=== PATIENT | female | born 1940 | race Caucasian/White ===

== ENCOUNTER → 2016-12-17 | Outpatient (CLI) | payer MEDICARE, BC ==
--- NOTE | 2016-12-24 15:10 | KCIC ---
DATE: 12/17/2016. EXAM: MAMMO [facility] SCREENING BILATERAL. HISTORY: Routine mammographic screening. COMPARISON: 08/15/2012. This study was interpreted with the benefit of Computerized Aided Detection (CAD). FINDINGS: The breast parenchyma shows scattered fibroglandular densities. Breast parenchyma level B.. A density laterally on the left CC view corresponds with small nodules superiorly and inferiorly on the left MLO view, best seen tomographic. These are better seen in the setting of decreasing parenchymal density since the prior study. On the right, small nodules laterally have stable correlates previously and are likely benign. BI-RADS CATEGORY: 0 INCOMPLETE: NEEDS ADDITIONAL IMAGING EVALUATION AND/OR PRIOR MAMMOGRAMS FOR COMPARISON.. RECOMMENDED FOLLOW-UP: ADD ADDITIONAL IMAGING. Spot compression imaging of small nodule superiorly and inferiorly and laterally on the left with sonography if necessary. See annotations. PQRS compliance statement: Patient information was entered into a reminder system with a target due date (now) for the next mammogram. Mammography is a sensitive method for finding small breast cancers, but it does not detect them all and is not a substitute for careful clinical examination. A negative mammogram does not negate a clinically suspicious finding and should not result in delay in biopsying a clinically suspicious abnormality. "Our facility is accredited by the [employer] Mammography [employer]."
== END | disposition home or self-care (01) ==
LOC: KCIC MAMMO 12:26
PROVIDERS: ATTEND Family Medicine
DX: Z12.31 Encounter for screening mammogram for malignant neoplasm of breast (principal)
CPT/HCPCS: 77063; G0202; 77067

== ENCOUNTER → 2017-01-21 | Outpatient (CLI) | payer MEDICARE, BC ==
--- NOTE | 2017-01-21 09:38 | KCIC ---
DATE: 01/21/2017 EXAM: DIGITAL DIAGNOSTIC LT HISTORY: Left breast nodules COMPARISON: 12/17/2016 This study was interpreted with the benefit of Computerized Aided Detection (CAD). FINDINGS: Breast Density: SCATTERED The breast parenchyma shows scattered fibroglandular densities. Breast parenchyma level B. Spot compression views of the left breast in MLO view demonstrate no definite evidence of mass or lesion. The previously visualized asymmetry appears to spread out on spot compression views. IMPRESSION: Probably benign findings. Recommend left breast mammogram in 6 months. BI-RADS CATEGORY: 3 PROBABLE BENIGN-SHORT TERM F/U RECOMMENDED FOLLOW-UP: 6M 6 MONTH FOLLOW-UP PQRS compliance statement: Patient information was entered into a reminder system with a target due date 07/22/2017 for the next mammogram. Mammography is a sensitive method for finding small breast cancers, but it does not detect them all and is not a substitute for careful clinical examination. A negative mammogram does not negate a clinically suspicious finding and should not result in delay in biopsying a clinically suspicious abnormality. "Our facility is accredited by the [employer] Mammography [employer]."
== END | disposition home or self-care (01) ==
LOC: KCIC MAMMO 08:39
PROVIDERS: ATTEND Family Medicine
DX: N63.10 Unspecified lump in the right breast, unspecified quadrant (principal)
CPT/HCPCS: G0206; 77065

== ENCOUNTER → 2017-05-24 | Outpatient (CLI) | payer OTHER | END | disposition home or self-care (01) | LOC: KCIC DEXA 11:22 | DX: Z13.820 Encounter for screening for osteoporosis (principal); M81.0 Age-related osteoporosis without current pathological fracture; M85.88 Other specified disorders of bone density and structure, other site; E05.90 Thyrotoxicosis, unspecified without thyrotoxic crisis or storm; Z78.0 Asymptomatic menopausal state | CPT/HCPCS: 77080 ==

== ENCOUNTER → 2017-08-05 | Outpatient (CLI) | payer MEDICARE | END | disposition home or self-care (01) | LOC: KCIC MAMMO 10:18 | DX: R92.8 Other abnormal and inconclusive findings on diagnostic imaging of breast (principal) | CPT/HCPCS: 77065; G0279 ==

== ENCOUNTER → 2019-05-17 | Outpatient (CLI) | payer MEDICARE ==
[2017-06-19 15:00] VITALS: BP 145/66
[~2019-05-17] MED LIST: ASPI325T8 PO; GABA300C18 PO; HYDR-2765 PO; LEVO100T PO
--- NOTE | 2019-05-17 10:48 | KCIC ---
Bilateral diagnostic digital mammograms with 3-D tomosynthesis: Reason for examination: Bilateral breast pain laterally. Comparison is made to previous studies dated back to 08/15/2012. Bilateral mammograms in CC and oblique projections were obtained with 2-D imaging and 3-D tomosynthesis imaging on a Siemens Inspiration unit and reviewed on the workstation. Interpretation was made with the benefit of CAD. The skin and nipples show no abnormalities. No abnormal axillary lymph nodes are seen. The breast parenchyma shows scattered fatty and fibroglandular density. (Breast density: Category B.) There continue to be small circumscribed nodular parenchymal densities bilaterally which appear to be stable. There are no suspicious calcifications or architectural distortion. Impression: Small circumscribed nodules bilaterally which are predominantly located laterally. Ultrasound to follow. BI-RAD Category 0: Incomplete. Needs additional imaging evaluation. Bilateral breast ultrasound: Ultrasound examination was performed bilaterally with attention to the areas of mammographic concern and the axilla. In the right breast at the 13 o'clock position 3 cm from the nipple, there is a 4 mm hypoechoic or cystic type lesion in the distal 3 mm hypoechoic fibrocystic lesion. There also appears be tiny 3.9 mm fibrocystic lesion at the 7:00 position. No other cystic or solid nodules are seen. No abnormal appearing lymph nodes are seen in the right axilla. In the left breast, there are several small anechoic and hypoechoic nodules consistent with cystic and fibrocystic lesions measuring up to 9.2 mm in size with the largest lesion at the 4:00 position 3 cm from the nipple. No suspicious-appearing nodules are seen. No abnormal appearing lymph nodes are seen in the left axilla. IMPRESSION: Multiple small cystic and fibrocystic type lesions which are subcentimeter in size seen bilaterally which correspond to the mammographic findings. No suspicious lesions are seen. Recommend 6 month follow-up with bilateral breast ultrasound. BI-RADS Category 3: Probably Benign. "Our facility is accredited by the [employer] Mammography [employer]." This patient's information has been entered into a reminder system for the patient to be notified with the results of her examination and a target date for the next mammogram. Electronically signed by: Autumn Fernandes MD (05/17/2019 10:45 AM) [facility]
== END | disposition home or self-care (01) ==
LOC: KCIC MAMMO 08:13
PROVIDERS: ATTEND Family Medicine
DX: N64.89 Other specified disorders of breast (principal)
CPT/HCPCS: 76641; 77066; G0279; 77062